=== PATIENT | female | born 1950 | race Caucasian/White ===

== ENCOUNTER 2020-11-20 12:47 | Emergency (ER) | payer MEDICAID ==
[~2020-11-20] VITALS: Ht 162.6 cm; Wt 56.0 kg
[2020-11-20] MEDS ORDERED: IBUPROFEN 600MG TABLET PO ONE (16:30)
[2020-11-20 17:07] VITALS: BP 152/60
== END 2020-11-20 17:08 | disposition home or self-care (01) ==
LOC: ER 12:47
DX: M25.561 Pain in right knee (principal); E78.00 Pure hypercholesterolemia, unspecified; I10 Essential (primary) hypertension; Z88.0 Allergy status to penicillin
CPT/HCPCS: 70486; 73562; 73610; 93005; 99285